=== PATIENT | male | born 1980 | race Hispanic/Latino ===

== ENCOUNTER 2018-08-11 13:43 | Inpatient (IN) | payer SELFPAY ==
[2018-08-11] VITALS (7 sets, daily range): BP systolic 163–198; BP diastolic 84–109
[~2018-08-11] VITALS: Ht 175.3 cm; Wt 88.9 kg
[~2018-08-11 13:43] MED LIST: ALPR0.5T8 PO; DULO60CA63 PO; GEMF600T4 PO; INSU3INS5 SQ; METF-446 PO; OLME40TA8 PO; OXCA600T18 PO; PRAV80TA21 PO; PREG200C PO
[2018-08-11] MEDS ORDERED: SODIUM CHLORIDE 0.9% 1000ML 1,000 ML IV ONE ×4 (14:13→17:42)
[2018-08-11] MEDS ORDERED: KETOROLAC TROMETHAMINE 30MG/ML ONE (14:13)
[2018-08-11] MEDS ORDERED: ONDANSETRON HCL 4 MG/2 ML VIAL ONE (14:13)
[2018-08-11] MEDS ORDERED: FAMOTIDINE/PF 20 MG/2 ML VIAL IV ONE (14:15)
[2018-08-11 15:07] LABS: BASOPHILS % (AUTO) 0.5 % (0.0-5.0); EOSINOPHILS % (AUTO) 0.5 % (0.0-8.0); HEMATOCRIT 39.6 % (42-54); LYMPHOCYTES % (AUTO) 12.3 % (21.0-51.0); MEAN CORPUSCULAR VOLUME 82.2 fL (79-99); MONOCYTES % (AUTO) 5.9 % (3.0-13.0); NEUTROPHILS % (AUTO) 80.8 % (40.0-77.0); PLATELET COUNT (AUTO) 244 K/uL (130-400); RED BLOOD CELL COUNT(AUTO) 4.82 MIL/uL (4.50-6.20); RED CELL DISTRIBUTION WIDTH 13.7 % (11.0-15.5); WHITE BLOOD COUNT (AUTO) 11.4 K/uL (4.8-10.8)
[2018-08-11 15:09] LABS: ACETONE,BLOOD NEGATIVE (NEGATIVE); POTASSIUM 4.9 mmol/L (3.5-5.1)
[2018-08-11 15:12] LABS: APPEARANCE,URINE Clear (CLEAR); BILIRUBIN,URINE Negative (NEGATIVE); COLOR,URINE Yellow (YELLOW); GLUCOSE, URINE (UA) >=1000 mg/dL (NEGATIVE); KETONES,URINE >=160 mg/dL (NEGATIVE); LEUKOCYTE ESTERASE ,URINE Negative (NEGATIVE); NITRATE,URINE Negative (NEGATIVE); OCCULT BLOOD,URINE Negative (NEGATIVE); PROTEIN,URINE POS 2+ (NEGATIVE); UROBILINOGEN,URINE 0.2 mg/dL (0.2-1.0)
[2018-08-11] MEDS ORDERED: DICYCLOMINE HCL 20 MG TAB ONE (15:16)
[2018-08-11] MEDS ORDERED: LIDOCAINE HCL 2% VISCOUS 15 ML UDCUP ONE (15:16)
[2018-08-11] MEDS ORDERED: MAG HYDROX/AL HYDROX/SIMETH ES 30 ML SUSP UDCUP ONE (15:17)
[2018-08-11] MEDS ORDERED: INSULIN HUMULIN R 100 UNIT/ML 3ML ONE ×2 (15:17→16:24)
[2018-08-11 15:19] LABS: AMPHET/METH SCREEN,URINE NEGATIVE (NEGATIVE); BARBITURATE SCREEN, URINE NEGATIVE (NEGATIVE); BENZODIAZEPINES SCREEN,URINE NEGATIVE (NEGATIVE); CANNABINOID SCREEN,URINE NEGATIVE (NEGATIVE); COCAINE SCREEN,URINE POSITIVE (NEGATIVE); OPIATE SCREEN,URINE NEGATIVE (NEGATIVE); PHENCYCLIDINE SCREEN,URINE NEGATIVE (NEGATIVE)
[2018-08-11 15:37] LABS: ABG BASE EXCESS -5.2 mmol/L (-2.0-3.0); ABG HCO3 18.9 mmol/L (21.0-28.0); ABG OXYGEN SATURATION 96.6 % (95.0-99.0); ABG PCO2 33 mmHg (35-48)
[2018-08-11 15:44] LABS: CREATININE 0.5 mg/dL (0.5-1.5)
[2018-08-11 15:45] LABS: TOTAL PROTEIN, SERUM 6.7 g/dL (6.0-8.3)
[2018-08-11 15:46] LABS: ALBUMIN 3.7 g/dL (3.5-5.0)
[2018-08-11 15:47] LABS: MEAN CORPUSCULAR HEMOGLOBIN 29.2 pg (27.0-33.0)
[2018-08-11 15:48] LABS: MEAN CORPUSCULAR HGB CONC 35.5 g/dL (32.0-36.0)
[2018-08-11 16:03] LABS: BILIRUBIN,TOTAL 1.5 mg/dL (0.2-1.0)
[2018-08-11 16:23] LABS: LIPASE 2626 U/L (114-286)
[2018-08-11] MEDS ORDERED: SODIUM CHLORIDE 0.9% 100 ML IV ONE (16:23)
[2018-08-11] MEDS ORDERED: SODIUM CHLORIDE 0.9% 1000ML 1,000 ML IV SCH ×3 (16:33)
[2018-08-11] MEDS: SODIUM CHLORIDE 0.9% 1000ML 1,000 ML IV SCH ×4 (16:33→21:27)
[2018-08-11] MEDS ORDERED: DEXTROSE 5 %-0.45 % NACL 1,000 ML IV PRN ×3 (16:33)
[2018-08-11 16:34] LABS: CHOLESTEROL 405 mg/dL (<200); HDL CHOLESTEROL 28 mg/dL (29-71); LDL DIRECT 82 mg/dL (0-99)
[2018-08-11] MEDS ORDERED: INSULIN HUMULIN R 100 UNIT/ML 3ML IV SCH (16:45)
[2018-08-11] MEDS ORDERED: POTASSIUM CHLORIDE 10MEQ/100ML 100 ML IV PRN ×3 (16:45)
[2018-08-11 16:52] LABS: BACTERIA,URINE Rare /HPF (None Seen); RBC,URINE 0-1 /HPF (0-1); WBC,URINE 0-1 /HPF (0-1); YEAST,URINE BUDDING Rare /HPF (None Seen)
[2018-08-11 17:06] LABS: TRIGLYCERIDES 4586 mg/dL (30-200)
[2018-08-11] MEDS ORDERED: DEXTROSE 50%-WATER 50 ML DISP.SYRIN IV PRN (20:00)
[2018-08-11] MEDS ORDERED: GLUCAGON 1MG KIT 1 MG ML IM PRN (20:00)
[2018-08-11] MEDS ORDERED: INSULIN REGULAR, HUMAN 3ML 100 UNIT in SODIUM CHLORIDE 0.9% 99 ML IV PRN ×2 (20:00)
[2018-08-11] MEDS ORDERED: LIDOCAINE HCL-MPF 1% 2ML VIAL IVP PRN (20:00)
[2018-08-11] MEDS: ONDANSETRON HCL 4 MG/2 ML VIAL IVP PRN (20:20)
[2018-08-11] MEDS: FAMOTIDINE/PF 20 MG/2 ML VIAL IV SCH (20:20)
[2018-08-11] MEDS: MORPHINE SULFATE 2 MG/ML 1ML SYG IV PRN (20:21)
[2018-08-11] MEDS ORDERED: HYDRALAZINE HCL 20 MG/ML VIAL IM PRN (21:45)
[2018-08-11] MEDS ORDERED: HYDRALAZINE HCL 20 MG/ML VIAL ONE (22:15)
[2018-08-11 22:52] LABS: MAGNESIUM 1.8 mg/dL (1.80-2.40); PHOSPHORUS 2.4 mg/dL (2.5-4.9); POTASSIUM 3.6 mmol/L (3.5-5.1)
[2018-08-11] MEDS ORDERED: POTASSIUM CHLORIDE 20MEQ/100ML 100 ML IV ONE (23:12)
[2018-08-11] MEDS: MAGNESIUM 2GM PREMIX 50ML 50 ML IV PRN (23:14)
[2018-08-11 23:51] LABS: CREATININE 0.3 mg/dL (0.5-1.5)
[2018-08-12] VITALS (18 sets, daily range): BP systolic 132–171; BP diastolic 65–109
[2018-08-12] MEDS: MORPHINE SULFATE 2 MG/ML 1ML SYG IV PRN ×2 (00:20→07:35)
[2018-08-12] MEDS ORDERED: METF500T PO (00:59)
[2018-08-12] MEDS ORDERED: PREG50 PO (00:59)
[2018-08-12] MEDS ORDERED: ALPR-410 PO (00:59)
[2018-08-12] MEDS ORDERED: POTASSIUM CHLORIDE 20MEQ/100ML 100 ML IV PRN (01:00)
[2018-08-12] MEDS ORDERED: POTASSIUM CHLORIDE 10% ELIXIR 20 MEQ/15 ML UDCUP PO PRN (01:00)
[2018-08-12] MEDS: SODIUM CHLORIDE 0.9% 1000ML 1,000 ML IV SCH ×4 (01:45→17:33)
[2018-08-12 04:14] LABS: BASOPHILS % (AUTO) 1.1 % (0.0-5.0); HEMATOCRIT 37.5 % (42-54); LYMPHOCYTES % (AUTO) 19.6 % (21.0-51.0); MEAN CORPUSCULAR HEMOGLOBIN 29.9 pg (27.0-33.0); MEAN CORPUSCULAR HGB CONC 36.5 g/dL (32.0-36.0); NEUTROPHILS % (AUTO) 69.3 % (40.0-77.0); NUCLEATED RED BLOOD CELLS 0.3 % (0.0-0.19); PLATELET COUNT (AUTO) 261 K/uL (130-400); RED BLOOD CELL COUNT(AUTO) 4.58 MIL/uL (4.50-6.20); RED CELL DISTRIBUTION WIDTH 13.7 % (11.0-15.5); WHITE BLOOD COUNT (AUTO) 9.8 K/uL (4.8-10.8)
[2018-08-12 04:41] LABS: ALBUMIN 2.6 g/dL (3.5-5.0); BILIRUBIN,TOTAL 1.1 mg/dL (0.2-1.0); CREATININE 0.5 mg/dL (0.5-1.5); PHOSPHORUS 2.2 mg/dL (2.5-4.9); POTASSIUM 4.1 mmol/L (3.5-5.1); TOTAL PROTEIN, SERUM 6.5 g/dL (6.0-8.3)
[2018-08-12] MEDS ORDERED: POTASSIUM PHOS 15 mMOL+NS250ML 250 ML IV PRN (07:00)
[2018-08-12] MEDS: ONDANSETRON HCL 4 MG/2 ML VIAL IVP PRN (07:35)
[2018-08-12] MEDS: FAMOTIDINE/PF 20 MG/2 ML VIAL IV SCH ×2 (07:58→20:42)
[2018-08-12] MEDS: ENOXAPARIN SODIUM 30 MG/0.3 ML SQ SCH (08:02)
[2018-08-12] MEDS ORDERED: HYDRALAZINE HCL 20 MG/ML VIAL IV PRN (09:45)
[2018-08-12 14:10] LABS: CREATININE 0.5 mg/dL (0.5-1.5); MAGNESIUM 1.7 mg/dL (1.80-2.40); PHOSPHORUS 2.4 mg/dL (2.5-4.9); POTASSIUM 3.5 mmol/L (3.5-5.1)
[2018-08-12] MEDS ORDERED: INSULIN HUMULIN R 100 UNIT/ML 3ML IV SCH (17:17)
[2018-08-12] MEDS: MAGNESIUM 2GM PREMIX 50ML 50 ML IV PRN (17:33)
[2018-08-12] MEDS ORDERED: INSULIN HUMULIN R 100 UNIT/ML 3ML ONE (17:48)
[2018-08-12] MEDS: INSULIN GLARGINE 100 UNITS/ML 10 ML VIAL SQ SCH (20:37)
[2018-08-12] MEDS: INSULIN HUMULIN R 100 UNIT/ML 3ML SQ SCH (20:39)
[2018-08-13 03:00] VITALS: BP 151/94
[2018-08-13] MEDS: ONDANSETRON HCL 4 MG/2 ML VIAL IVP PRN (03:04)
[2018-08-13] MEDS ORDERED: MAG HYDROX/AL HYDROX/SIMETH ES 30 ML SUSP UDCUP PO PRN (03:15)
[2018-08-13 03:58] LABS: BASOPHILS % (AUTO) 0.7 % (0.0-5.0); EOSINOPHILS % (AUTO) 1.1 % (0.0-8.0); HEMATOCRIT 38.5 % (42-54); LYMPHOCYTES % (AUTO) 12.8 % (21.0-51.0); MEAN CORPUSCULAR HEMOGLOBIN 28.2 pg (27.0-33.0); MEAN CORPUSCULAR HGB CONC 34.1 g/dL (32.0-36.0); MEAN CORPUSCULAR VOLUME 82.7 fL (79-99); MONOCYTES % (AUTO) 7.9 % (3.0-13.0); NEUTROPHILS % (AUTO) 77.5 % (40.0-77.0); PLATELET COUNT (AUTO) 229 K/uL (130-400); RED BLOOD CELL COUNT(AUTO) 4.65 MIL/uL (4.50-6.20); RED CELL DISTRIBUTION WIDTH 13.6 % (11.0-15.5); WHITE BLOOD COUNT (AUTO) 10.3 K/uL (4.8-10.8)
[2018-08-13 04:07] LABS: CREATININE 0.6 mg/dL (0.5-1.5); POTASSIUM 3.5 mmol/L (3.5-5.1)
[2018-08-13] MEDS: POTASSIUM CHLORIDE 20 MEQ ERTAB PO PRN ×2 (04:21→05:42)
[2018-08-13] MEDS: INSULIN HUMULIN R 100 UNIT/ML 3ML SQ SCH ×4 (05:49→21:44)
[2018-08-13 08:00] VITALS: BP 133/79
[2018-08-13] MEDS: ENOXAPARIN SODIUM 30 MG/0.3 ML SQ SCH (09:21)
[2018-08-13] MEDS: FAMOTIDINE/PF 20 MG/2 ML VIAL IV SCH ×2 (09:22→21:46)
[2018-08-13 12:12] VITALS: BP 128/74
[2018-08-13 16:00] VITALS: BP 126/63
[2018-08-13 20:00] VITALS: BP 139/88
[2018-08-13] MEDS: INSULIN GLARGINE 100 UNITS/ML 10 ML VIAL SQ SCH (21:42)
[2018-08-13 23:00] VITALS: BP 142/84
[2018-08-14 04:00] VITALS: BP 131/77
[2018-08-14 04:37] LABS: BASOPHILS % (AUTO) 1.2 % (0.0-5.0); EOSINOPHILS % (AUTO) 1.8 % (0.0-8.0); HEMATOCRIT 37.9 % (42-54); LYMPHOCYTES % (AUTO) 18.6 % (21.0-51.0); MEAN CORPUSCULAR HEMOGLOBIN 28.7 pg (27.0-33.0); MEAN CORPUSCULAR HGB CONC 34.8 g/dL (32.0-36.0); MEAN CORPUSCULAR VOLUME 82.5 fL (79-99); MONOCYTES % (AUTO) 7.9 % (3.0-13.0); NEUTROPHILS % (AUTO) 70.5 % (40.0-77.0); PLATELET COUNT (AUTO) 272 K/uL (130-400); RED CELL DISTRIBUTION WIDTH 13.5 % (11.0-15.5); WHITE BLOOD COUNT (AUTO) 9.2 K/uL (4.8-10.8)
[2018-08-14 04:49] LABS: CREATININE 0.6 mg/dL (0.5-1.5); POTASSIUM 3.4 mmol/L (3.5-5.1)
[2018-08-14] MEDS ORDERED: ACETAMINOPHEN 325 MG TAB ONE (05:24)
[2018-08-14] MEDS: POTASSIUM CHLORIDE 20 MEQ ERTAB PO PRN ×2 (05:27→10:18)
[2018-08-14] MEDS ORDERED: ACETAMINOPHEN 325 MG TAB PO PRN ×2 (05:30)
[2018-08-14] MEDS: INSULIN HUMULIN R 100 UNIT/ML 3ML SQ SCH ×2 (06:34→11:49)
[2018-08-14 08:00] VITALS: BP 144/90
[2018-08-14] MEDS: FAMOTIDINE/PF 20 MG/2 ML VIAL IV SCH (09:25)
[2018-08-14] MEDS: ENOXAPARIN SODIUM 30 MG/0.3 ML SQ SCH (09:26)
[2018-08-14 11:00] VITALS: BP 132/80
[2018-08-14 16:00] VITALS: BP 129/83
== END 2018-08-14 16:30 | disposition home or self-care (01) | DRG 438 ==
LOC: EDH 13:43 → EDHIP 13:44 → 2CH 19:22 → 2AH 08-12 18:23 → 3BH 08-14 10:32
PROVIDERS: ADMIT Hospitalist; ATTEND Hospitalist
DX: K85.90 Acute pancreatitis without necrosis or infection, unspecified (principal); E11.10 Type 2 diabetes mellitus with ketoacidosis without coma; E87.1 Hypo-osmolality and hyponatremia; I10 Essential (primary) hypertension; E78.5 Hyperlipidemia, unspecified; F14.90 Cocaine use, unspecified, uncomplicated; E87.8 Other disorders of electrolyte and fluid balance, not elsewhere classified; Z79.4 Long term (current) use of insulin; Z91.19 Patient's noncompliance with other medical treatment and regimen; Z91.14 Patient's other noncompliance with medication regimen; Z83.3 Family history of diabetes mellitus; Z82.49 Family history of ischemic heart disease and other diseases of the circulatory system
CPT/HCPCS: 36415; 36600; 80048; 80053; 80061; 80305; 81001; 82009; 82803; 82948; 83605; 83690; 83735; 84100; 84484; 85025; 93005; J0360; J1650; J1815; J1885; J2405; J3475; J3480; J3490; J7030; J7042